=== PATIENT | male | born 1965 | race Caucasian/White ===

== ENCOUNTER 2019-09-03 05:29 | Emergency (ER) | payer MEDICAID ==
[~2019-09-03] VITALS: Ht 180.3 cm; Wt 88.5 kg
[2019-09-03 05:30] VITALS: Ht 180.3 cm; Wt 88.5 kg
[2019-09-03 08:58] VITALS: BP 132/85
== END 2019-09-03 08:58 | disposition home or self-care (01) ==
LOC: ED 05:29
DX: S20.212A Contusion of left front wall of thorax, initial encounter (principal); Z90.89 Acquired absence of other organs; X58.XXXA Exposure to other specified factors, initial encounter; Y93.89 Activity, other specified; Y92.89 Other specified places as the place of occurrence of the external cause; Y99.8 Other external cause status
CPT/HCPCS: J1885